=== PATIENT | female | born 1990 | race African-American/Black ===

== ENCOUNTER 2016-12-03 05:10 | Emergency (ER) | payer OTHER ==
[2016-12-03 05:12] VITALS: BP 141/96; PULSE 97; RESP 16; TEMP 98.9; O2SAT 99
--- NOTE | 2016-12-03 05:39 | PD ---
HPI Chief Complaint: GI Complaint Time Seen by Provider: 05:21 Travel History International Travel<30 days: No Contact w/Intl Traveler<30days: No Traveled to known affect area: No History of Present Illness HPI Healthy 26-year-old female here with complaint of abdominal pain. Patient has had approximately one week of low crampy abdominal discomfort with associated nausea. No vomiting. She has associated body aches, headache. No documented fevers or chills. Bowel movements have been regular. Last menstrual period approximately one week ago and finished 2 days ago. Patient states that this was usual timing for her, lasted typical number of days and blood her usual heaviness. She denies any abnormal vaginal discharge or new sexual partners. Symptoms are not any worse today but she presents to the ER given duration of symptoms. PFSH Past Medical History Tetanus Vaccination: > 5 Years Influenza Vaccination: No ?: Not LMP: 11/26/16 Past Surgical History Surgical History: No Previous Surgery Social History Alcohol Use: No Tobacco Use: No Substance Use: No Allergies-Medications (Allergen,Severity, Reaction): Coded Allergies: Ibuprofen (Verified Allergy, Unknown, 12/03/16) Reported Meds & Prescriptions Reported Meds & Active Scripts Active No Active Prescriptions or Reported Medications Review of Systems Except as stated in HPI: all other systems reviewed are Neg Physical Exam Narrative GENERAL: Well-appearing female in no acute distress SKIN: Warm and dry. HEAD: Normocephalic. EYES: No scleral icterus. No injection or drainage. Pupils equal round and reactive to light ENT: Mucous membranes pink and moist. NECK: Supple CARDIOVASCULAR: Regular rate and rhythm. No murmur appreciated. RESPIRATORY: No accessory muscle use. Clear to auscultation. Breath sounds equal bilaterally. GASTROINTESTINAL: Abdomen soft, non-tender, nondistended. No CVA tenderness. MUSCULOSKELETAL: Moves all extremities normally, normal gait NEUROLOGICAL: Awake and alert. Normal speech. PSYCHIATRIC: Appropriate mood and affect; insight and judgment normal. Data Data Last Documented VS Vital Signs Date Time Temp Pulse Resp B/P Pulse Ox O2 Delivery O2 Flow Rate FiO2 12/03/16 05:12 98.9 97 16 141/96 99 Orders Urinalysis - C+S If Indicated (12/03/16 05:22) Ed Urine Pregnancytest Poc (12/03/16 05:22) Ondansetron Odt (Zofran Odt) (12/03/16 05:45) Gc And Chlamydia Pcr (12/03/16 05:44) Wet Prep Profile (12/03/16 05:44) Urine Culture (12/03/16 05:34) Labs Laboratory Tests Test 12/03/16 05:34 Urine Color YELLOW Urine Turbidity HAZY Urine pH 5.5 Urine Specific [place] 1.022 Urine Protein TRACE mg/dL Urine Glucose (UA) NEG mg/dL Urine Ketones NEG mg/dL Urine Occult Blood TRACE Urine Nitrite POS Urine Bilirubin NEG Urine Urobilinogen LESS THAN 2.0 MG/DL Urine Leukocyte Esterase MOD Urine RBC 4 /hpf Urine WBC 10 /hpf Urine Squamous Epithelial 26 /hpf Cells Urine Bacteria OCC /hpf Urine Hyaline Casts 1 /lpf Urine Mucus FEW /lpf Microscopic Urinalysis Comment CULTURE INDICATED MDM Medical Decision Making Medical Screen Exam Complete: Yes Emergency Medical Condition: Yes Medical Record Reviewed: Yes Differential Diagnosis 26-year-old female with one week of low abdominal cramping pain in association with her menses with nausea, body aches and headache. Differential includes , ectopic , dysmenorrhea, menorrhagia, UTI, viral syndrome. Abdominal examination is benign making peritoneal pathology unlikely. Narrative Course Given 4 mg Zofran ODT. Urine test was negative. Urinalysis shows leukocyte esterase with white cells, red cells, bacteria and nitrites. Patient will be treated with antibiotics for home for urinary tract infection. PCP follow-up if symptoms persist. Diagnosis Primary Impression: Urinary tract infection Qualified Code: N30.01 - Acute cystitis with hematuria Additional Impressions: Abdominal pain Qualified Code: R10.30 - Lower abdominal pain Nausea Referrals: Primary Care Physician as needed Additional Instructions: Finish antibiotics as prescribed. Antiemetics as needed for nausea, vomiting. Tylenol or ibuprofen as needed for pain. Follow with PCP as symptoms persist and return to the ER for the warning signs discussed. Med/Other Pt SpecificInfo: Prescription(s) given Scripts Promethazine (Phenergan)25 Mg Tab25 Mg PO Q6H PRN (Nausea/Vomiting) #10 TAB Ref 0 Prov:Lisset Amaral MD 12/03/16 Nitrofurantoin Monohydrate Macrocrystals (Macrobid)100 Mg Qpc038 Mg PO BID 7 Days Ref 0 Prov:Lisset Amaral MD 12/03/16 Disposition: 01 DISCHARGE HOME Condition: Stable Lisset Amaral MD Dec 03, 2016 05:39
[2016-12-03] MEDS ORDERED: ONDANSETRON ODT 4 MG TAB PO ONE (05:45)
[2016-12-03 05:58] LABS: BACTERIA, URINE OCC /hpf; BLOOD, URINE TRACE (NEG); COMMENT (UR) CULTURE INDICATED; CULTURE IF INDICATED CULTURE INDICATED; GLUCOSE,URINE NEG (NEG); HYALINE CAST, URINE 1 /lpf (RARE); KETONE, URINE NEG (NEG); MUCUS URINE FEW /lpf (OCC); NITRITE,URINE POS (NEG); PH, URINE 5.5 (5.0-8.5); SQUAMOUS EPITHELIAL CELL URINE 26 /hpf (0-5); URINE COLOR YELLOW (YELLW/STRAW)
[2016-12-03] MEDS ORDERED: MACR100C2 PO (06:03)
[2016-12-03] MEDS ORDERED: PROM25TA5 PO (06:03)
== END 2016-12-03 06:22 | disposition home or self-care (01) ==
LOC: NEPE 05:10
DX: N39.0 Urinary tract infection, site not specified (principal); B96.29 Other Escherichia coli [E. coli] as the cause of diseases classified elsewhere
CPT/HCPCS: 81001; 84703; 87077; 87086; 87186; 99284